=== PATIENT | male | born 1960 | race Caucasian/White ===

== ENCOUNTER 2017-06-07 11:26 | Emergency (ER) | payer OTHER ==
[2017-06-07 11:42] LABS: BASOPHIL (%) 0.4 % (0-1); EOSINOPHIL (%) 0.8 % (0-5); EOSINOPHIL COUNT 0.1 K/uL (0-0.3); HEMATOCRIT 43.6 % (38.0-50.0); HEMOGLOBIN 16.1 G/DL (12.5-16.6); IMMATURE GRANULOCYTE (%) 0.6 % (0.0-0.7); LYMPHOCYTE COUNT 2.7 K/uL (1.0-2.8); MCH 31.9 PG (29.0-34.0); MCHC 36.9 G/DL (30.0-36.0); MCV 86.5 FL (86-99); MONOCYTE (%) 5.3 % (3-12); MONOCYTE COUNT 0.6 K/uL (0-0.8); NEUTROPHIL (%) 66.9 % (45-76); NEUTROPHIL COUNT 7.1 K/uL (1.8-6.4); PLATELET COUNT 193 K/uL (156-360); RBC DIS.WIDTH-CV 11.9 % (11.8-14.6); RBC DIS.WIDTH-SD 37.9 % (39-53); RED BLOOD COUNT 5.04 M/uL (4.00-5.50); WHITE BLOOD COUNT 10.6 K/uL (4.1-10.2)
[2017-06-07 11:52] LABS: AMYLASE 66 IU/L (1-118); CHLORIDE 104 mEq/L (99-109); POTASSIUM 3.5 mEq/L (3.7-5.4); SODIUM 139 mEq/L (136-147)
[2017-06-07 11:54] LABS: GLUCOSE 117 mg/dL (70-99)
[2017-06-07 11:57] LABS: SERUM ETHYL ALCOHOL < 10 mg/dL
[2017-06-07 11:58] LABS: CREATININE 1.1 mg/dL (0.6-1.3)
[2017-06-07 11:59] LABS: GFR ESTIMATE (CALCULATED) > 59 mL/min/ (58.99-99999); UREA NITROGEN (BUN) 21 mg/dL (9-23)
[2017-06-07 12:01] LABS: LIPASE 16 U/L (1.0-51.0)
[2017-06-07] MEDS ORDERED: PERCOCET 5/31 TABLET PO (14:03)
== END 2017-06-07 15:21 | disposition home or self-care (01) ==
LOC: TRA 11:26
PROVIDERS: Emergency Medicine
DX: S42.031A Displaced fracture of lateral end of right clavicle, initial encounter for closed fracture (principal); S40.011A Contusion of right shoulder, initial encounter; S60.222A Contusion of left hand, initial encounter; V19.9XXA Pedal cyclist (driver) (passenger) injured in unspecified traffic accident, initial encounter; Y93.55 Activity, bike riding
CPT/HCPCS: 70450; 71045; 72125; 73030; 73130; 80048; 81003; 82150; 83690; 85025; 86850; 86900; 86901; 99281; 99285; G0480; J3010